=== PATIENT | male | born 1965 | race Caucasian/White ===

== ENCOUNTER 2018-05-01 10:55 | Emergency (ER) | payer SELFPAY ==
[~2018-05-01] VITALS: Ht 172.7 cm; Wt 81.6 kg
--- NOTE | 2018-05-01 10:55 | NUR ---
PT [facility] PREBOOK TO BED 09
[2018-05-01 10:57] VITALS: BP 128/89
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
[2018-05-01] MEDS ORDERED: IBUPROFEN 400 MG TAB PO ONE (11:20)
--- NOTE | 2018-05-01 11:35 | NUR ---
pt to radiology at this time via w/c accompainied by [facility] w/o incident.
[2018-05-01 11:49] VITALS: BP 128/89
--- NOTE | 2018-05-01 11:49 | NUR ---
Patient discharged with v/s stable. Written and verbal after care instructions given and explained. Patient verbalized understanding. Ambulatory with steady gait. All questions addressed prior to discharge. Advised to follow up with PMD.
== END 2018-05-01 11:49 ==
LOC: MED 10:55
DX: Z02.89 Encounter for other administrative examinations (principal); S20.211A Contusion of right front wall of thorax, initial encounter; R03.0 Elevated blood-pressure reading, without diagnosis of hypertension; Z71.6 Tobacco abuse counseling; V49.49XA Driver injured in collision with other motor vehicles in traffic accident, initial encounter; Y93.89 Activity, other specified; Y92.488 Other paved roadways as the place of occurrence of the external cause; Y99.8 Other external cause status
CPT/HCPCS: 71046; 99284